=== PATIENT | male | born 1940 | race African-American/Black ===

== ENCOUNTER 2020-12-01 10:57 | Inpatient (IN) | payer OTHER ==
[~2020-12-01] VITALS: Ht 182.9 cm; Wt 97.1 kg
--- NOTE | ~2020-12-01 | HC ---
[facility] [place] [address] [place] [address] CONSULTATION Name: JAMILA PAUL Room #: 451-P ADM IN M.Dianne.#: [id number] Admission: 12/01/20 Attend Phys: Gray Mcgill MD Discharge: Date of : 36 Report #: [id number] THIS REPORT FOR: cc: [facility] - Clinic physician unknown [facility] - Clinic physician unknown Shahzad Arguelol MD ~ DOC #: [id number] Shahzad Arguello MD DATE OF SERVICE: 12/01/2020 HISTORY OF PRESENT ILLNESS: This is an 80-year-old male patient who was seen by me in the Emergency Room. I reviewed the notes and subsequently talked to Dr. Mcgill, the admitting physician. This patient is admitted because he indicates that he had what he describes as an acute onset of inability to walk on Sunday. He gives a history that he had some difficulty with walking and he wear diapers because of urinary problem. This is going on for a long time. He had a spine surgery about 10-15 years ago. Neither he nor the family remember the exact date. They can tell me whether it is since then or before. He does have ambulation difficulty in the baseline, but it is definitely worse. REVIEW OF SYSTEMS: Positive for atrial fibrillation. He says he does not know anything about it. He says he had a stroke about a year ago. He said he never went to the hospital because he just did not want to go to the hospital. He had a pretty significant urinary retention. I am not sure about upper extremity strength neither is he. He has a history of congestive heart failure, hypertension. Later on, the said that he was also told that he has spinal stenosis of the lower back, he was recommended surgery, but he refused that. He does not know what symptoms he was having when he had a cervical spine surgery. He had the hardware there, but he underwent an MRI of the lumbar spine without any difficulty today. He usually uses a walker, but apparently he is on the bed since Sunday. Review of systems is also positive for prostate cancer. He first did not tell me anything about him, but when the family mentioned, he said he has some prostate problems. This was his relevant 14-point review of systems. He tells me he is not on any anticoagulation, but his record indicated that he is on Pradaxa. He cannot tell me whether he was on that when he had his stroke. Therefore, history is poor. He denies any eye, ENT, cardiac, respiratory, GI symptoms associated with it. He has no back pain. He has symptoms. He has no psychiatric or allergic symptom associated with it. He has no hematological symptoms associated with it. PAST MEDICAL HISTORY: Positive for cervical spine surgery. FAMILY HISTORY: Unremarkable. SOCIAL HISTORY: He says he does not abuse alcohol and he had no trauma. [facility] [address] [place] [address] CONSULTATION Name: JAMILA PAUL Room #: 451-P [facility] IN M.R.#: [id number] Admission: 12/01/20 Attend Phys: Gray Mcgill MD Discharge: Date of : 36 Report #: [id number] PHYSICAL EXAMINATION: NEUROLOGIC: He is alert. He is responsive. His memory looks poor because his history comes intermittently, but I do not know what his baseline is. His speech looks intact. His cranial nerve examination II-XII to me looks unremarkable. To me, he looks to have reasonable strength in upper extremities, especially the distal upper extremities. In the proximal muscles, he does look weak, but I do not know how long that is going on. He is profoundly weak in the right leg. He can barely move it. The left leg he moves some but the movement is pretty limited. He did very poorly with the position sense in both lower extremities. He said that he cannot feel the pinprick, but the pinprick tends to come once I go above the knee. He appeared to have a flexor spasms in the left lower extremity. Right lower extremity he barely move. His fundus could not be visualized. He does not appear to be ataxic in the upper extremity and in the lower extremity, he does not have enough strength. RESPIRATORY: He has no respiratory difficulty. CARDIAC: He has been diagnosed with atrial fibrillation. It does not look like he has much edema. NECK: There is no thyroid mass. There is no carotid bruit. VITAL SIGNS: His blood pressure is 137/77, respirations 17, pulse is 78. LABORATORY DATA: Indicate a white count is normal and even his GFR is normal at 78 in spite of his urinary retention. IMPRESSION: This patient's presentation is concerning. He is basically paraplegic. Sensation is difficult to make sense, but it maybe he has some associated neuropathy, which need to be addressed and which contaminates the finding of sensation. Multiple things need to be addressed in this patient. First thing is that he has severe lumbar spinal stenosis. I reviewed that MRI films and they are pretty impressive, but I am not sure that can explain all his symptoms. He is on Pradaxa. He can have an epidural hematoma or he can have a similar spinal stenosis, higher up. So I ordered a stat MRI of the thoracic and lumbar spine. I discussed the procedure as well as his potential complication. He has a metal in his neck, but he was able to have an MRI of the lumbar spine and hopefully he will be able to have the MRI of the thoracic and cervical spine, but that is the risk he takes. Alternative is going to be myelogram, which is going to be difficult with his anticoagulation and have a stone complication. Both family and patient understood and they both wanted to proceed with MRI and I will ask them to do stat. I called Dr. Mcgill. I told him that this patient needs a neurosurgical evaluation if neurosurgery services are available here and if they are not, then he need to be transferred to some other facility. He is going to check on that and he believes neurosurgery facilities are available and they need to be contacted and [facility] [address] [place] [address] CONSULTATION Name: JAMILA PAUL Room #: 451-P [facility] IN M.R.#: [id number] Admission: 12/01/20 Attend Phys: Gray Mcgill MD Discharge: Date of : 36 Report #: [id number] management need to be done by them because this appeared to be a spine problem and neurologists do not handle the spine. 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 That is a separate issue because the most urgent thing in his case is making sure there is nothing in the spine, especially higher up and getting an evaluation done by Neurosurgery urgently and they should review his films and see what else needs to be done. Thank you very much for this referral. Shahzad Arguello MD PK/LASHAUN By: 181 50 Shahzad Arguello MD /nt
[~2020-12-01 10:57] MED LIST: AMBEREN PO; APAP500 PO; ASPIRIN325 PO; CALCIUM-MAG-ZI1 EACH PO; COLACE 100 MG100 MG PO; COZAAR 25 MG TA25 MG PO; COZAAR 50 MG TA50 M1 PO; COZAAR PO; DILTIAZEM 24HR360 M1 PO; FISH OIL 1,0001 EAC5 PO; FOLIC ACID1 MG PO; HYTRIN; HYTRIN 5 M5 MG/1 CAP PO; LANOXIN 0.250.25 M1 PO; LASIX 40 MG TAB40 M1 PO; LAXATIVE PEG 3317 GM PO; LO-DOSE ASPIRIN81 M1 PO; MULTIVITAMINS PO; POTASSIUM CHLO20 ME1 PO; PRADAXA150 MG PO; PROSTATE HEALT1 EACH PO; SAW PALMETTO500 MG PO; SENNA CONCENTR8.6 MG PO; SPIRONOLACTONE25 M1 PO; TAMSULOSIN HCL0.4 MG PO; VITAMIN D35000 UNI1 PO; VITAMINC500 PO
[2020-12-01 11:00] VITALS: BP 127/61
[2020-12-01 11:41] LABS: ABSOLUTE NEUTROPHILS 4.3 thou/uL (1.4-8.2); BASOPHILS 0.4 % (0.0-2.0); EOSINOPHILS 5.4 % (0.0-3.0); HEMOGLOBIN 12.7 gm/dL (14.0-18.0); LYMPHOCYTES 20.4 % (24.0-44.0); MCHC 32.7 g/dL (28.0-37.0); MCV 94.8 fL (80.0-100.0); MONOCYTES 17.9 % (1.0-8.0); PLATELET COUNT 206 thou/uL (150-400); POLYS 55.9 % (36.0-66.0); RBC 4.11 mil/uL (4.50-6.00); RDW 13.9 % (10.5-14.5); WBC 7.7 thou/uL (4.0-11.0)
[2020-12-01 11:47] LABS: CALCIUM 9.4 mg/dL (8.5-10.1); CREATININE 1.1 mg/dL (0.7-1.3); POTASSIUM 4.5 mmol/L (3.5-5.1)
[2020-12-01 11:53] LABS: ALBUMIN 3.3 g/dL (3.4-5.0); TOTAL BILIRUBIN 0.6 mg/dL (0.2-1.0); TOTAL PROTEIN 7.7 g/dL (6.4-8.2)
[2020-12-01] MEDS ORDERED: ADULT LOW DOSE81 MG PO (12:04)
--- NOTE | 2020-12-01 13:03 | EKG ---
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1940 Requested By: Kenan Dimas Order Number: [id number] MD: Geo Snyder Measurements Intervals Ida Rate: 73 P: [place]: QRS: -15 QRSD: 187 T: 44 QT: 421 QTc: 464 Interpretive Statements Atrial fibrillation Ventricular premature complex Nonspecific intraventricular conduction delay Compared to ECG 07/11/2011 09:15:28 Intraventricular conduction delay now present Left-axis deviation no longer present Incomplete right bundle-branch block no longer present T-wave abnormality no longer present Possible ischemia no longer present Electronically Signed On 12-01-2020 13:02:55 CDT by Geo Snyder [email or web address] <ELECTRONICALLY SIGNED> By: Geo Snyder MD, [facility] 12/01/20 1302 [id number] [id number] Geo Snyder MD, [facility] /EPI
[2020-12-01 14:13] VITALS: BP 126/64
[2020-12-01 14:27] LABS: URINE BILIRUBIN NEGATIVE (Negative); URINE BLOOD 2+ (Negative); URINE CLARITY CLEAR; URINE COLOR YELLOW; URINE GLUCOSE-RANDOM* NEGATIVE (Negative); URINE KETONES NEGATIVE (Negative); URINE LEUKOCYTES-REFLEX 3+ (Negative); URINE NITRITE-REFLEX POSITIVE (Negative); URINE PROTEIN (DIPSTICK) TRACE (Negative); URINE SPECIFIC GRAVITY 1.015 (1.005-1.035); URINE UROBILINOGEN 0.2 E.U./dl (0.2-1.0)
[2020-12-01 14:36] LABS: SQUAMOUS 0-3 Few /LPF (0-3); URINE WBC-REFLEX >25 Many /HPF (0-5)
[2020-12-01 14:37] LABS: BACTERIA-REFLEX 1-9 Few /HPF (None Seen); CRYSTALS None Seen /LPF (None Seen); URINE RBC 3-10 Few /HPF (NONE SEEN)
[2020-12-01 19:29] VITALS: BP 130/78
[2020-12-01 19:56] VITALS: BP 125/58
[2020-12-01] MEDS ORDERED: TERAZOSIN HCL5 MG PO (22:05)
[2020-12-01] MEDS ORDERED: DILTIAZEM ER180 M2 PO (22:06)
[2020-12-01] MEDS ORDERED: CARVEDILOL6.25 M1 PO (22:07)
--- NOTE | 2020-12-02 00:08 | NUR ---
Spoke with Dr. Mcgill re: request from Dr. Hadley to transfer pt to [facility] in a.m[facility] where he will be operating tomorrow. Chart sent to [facility] transfer center to be reviewed. Return call from Maricarmen at the transfer center stating that they would look at bed availablility in the morning.
[2020-12-02 01:10] VITALS: BP 140/84
--- NOTE | 2020-12-02 04:18 | NUR ---
ASSUMED CARE OF PT FROM ER AT 1945HRS. PT IS AOX3 AND CAN BE FORGETFUL FALL PRECAUTION IN PLACE. ROYAL IN PLACE AND IS PATIENT. URINE IS COUDY AND YELLOW. PT WAS ORIENTED TO THE UNIT AND HIS ROOM. PT REPORTED SOME BACK PAIN; PT DENIED NAUSEA OR SOA. ASSESMENT CHARTED. PT TO BE TRANSFERR[place] [facility] COVID TEST DONE; PENDING RESULTS. IVF COMTINUED. PT WAS ABLE TO GET COMFORTABLE AND SLEEP PART OF THE SHIFT. WILL CONTINUE TO MONITOR.
[2020-12-02 05:50] LABS: HEMATOCRIT 38.5 % (42.0-52.0); HEMOGLOBIN 12.6 gm/dL (14.0-18.0); MCH 31.2 pg (26.0-34.0); MCHC 32.6 g/dL (28.0-37.0); MCV 95.5 fL (80.0-100.0); RBC 4.03 mil/uL (4.50-6.00); RDW 14.2 % (10.5-14.5); WBC 7.7 thou/uL (4.0-11.0)
[2020-12-02 06:15] LABS: CALCIUM 9.2 mg/dL (8.5-10.1); MAGNESIUM 2.3 mg/dL (1.8-2.4); POTASSIUM 4.6 mmol/L (3.5-5.1)
[2020-12-02 07:10] VITALS: BP 139/92
[2020-12-02] MEDS ORDERED: ROCEPHIN 11 GM/1001 IV (08:18)
[2020-12-02] MEDS ORDERED: SODIUM CHLORID500 M1 IV (08:18)
--- NOTE | 2020-12-02 11:15 | NUR ---
PT ADMITTED RELATED TO WEAKNESS AND UTI. CM REVIEWED CHART AND SPOKE WITH CARE TEAM. PT INDICATED HE RESIDES IN A HOUSE WITH HIS SPOUSE WITH 3 STEPS TO ENTER AND NO STEPS THAT HE NEEDS TO USE REGULARLY INSIDE. PT INDICATED 13 STEPS ON BACK DECK. 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 PT INDICATED NO HH HX OR OP THERAPY. PT INDICATED HE SEES DR. MATOS [facility] THE [facility]. PT INDICATED THAT HE HAD A STROKE IN THE PAST AND DIDN'T SEEK TREATMENT OR THERAPIES. 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 CLINICAL INFO HAD BEEN SENT [place] [facility] [place]URO SURGERY. PT HAS BEEN ACCEPTED BY DR. ADRIENNE VARMA BUT [facility] DOENS'T HAVE A BED. CM CALLED AT 8:[address] MABRY'S PA [place] NENA OF THE ABOVE. PT HAD MRI DISC MADE. CHART COPY ORDERED. TRANSFER FORM AND [facility] FORM COMPLETED AND PLACED ON CHART. AWAITING BED AT [facility] CURRENTLY. PT IS AWARE AND AGREEABLE. CM FOLLOWING.
[2020-12-02 15:37] VITALS: BP 133/67
--- NOTE | 2020-12-02 19:19 | NUR ---
Assumed pt care this am, Vs stable. A and O x 4 but very forgetful in terms of short term memory. MRI completed this am, CD in the [facility] and sent to the [facility] as per radiology team. Pt is to [facility] under Dr. Stevens to room 6225. 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 Was advised that son and lei will be coming over to see him before he goes. Report called to nurse Syed in [facility]. FC patent and draining urine, to be kept in place when dc. POC followed with no signs or verbalizations of distress noted. Endorsed to the night nurse.
[2020-12-02 19:49] VITALS: BP 130/65
--- NOTE | 2020-12-02 22:30 | NUR ---
PT PICKED UP BY [facility] AT [facility]. PT IN STABLE CONDITION. ROYAL LEFT IN PLACE. IV DCed. FAMILY AWARE OF TX.
[2020-12-03 22:06] LABS: SYPHILIS AB Non Reactive (Non Reactive)
== END 2020-12-02 22:05 | disposition short-term general hospital (02) | DRG 552 ==
LOC: ER 10:57 → EROBS 14:06 → 4W 14:06
PROVIDERS: Emergency Medicine; ADMIT Internal Medicine; ATTEND Internal Medicine
DX: M48.07 Spinal stenosis, lumbosacral region (principal); N39.0 Urinary tract infection, site not specified; I50.32 Chronic diastolic (congestive) heart failure; I48.20 Chronic atrial fibrillation, unspecified; M48.04 Spinal stenosis, thoracic region; M47.896 Other spondylosis, lumbar region; I11.0 Hypertensive heart disease with heart failure; R33.9 Retention of urine, unspecified; I48.0 Paroxysmal atrial fibrillation; Z87.891 Personal history of nicotine dependence; Z85.46 Personal history of malignant neoplasm of prostate; Z92.3 Personal history of irradiation; Z88.1 Allergy status to other antibiotic agents; Z88.8 Allergy status to other drugs, medicaments and biological substances; Z82.49 Family history of ischemic heart disease and other diseases of the circulatory system; Z79.01 Long term (current) use of anticoagulants; Z20.822 Contact with and (suspected) exposure to COVID-19
CPT/HCPCS: 10040